=== PATIENT | female | born 1970 | race Caucasian/White ===

== ENCOUNTER 2016-08-11 11:30 | Emergency (ER) | payer OTHER ==
[~2016-08-11] VITALS: Ht 165.1 cm; Wt 52.0 kg
[~2016-08-11 11:30] MED LIST: ALPR1 PO; AMOX500T PO; BENT20TA PO; BIAX500T PO; CARA1SUS3 PO; OMEP20TA39 PO
[2016-08-11] MEDS ORDERED: MOBI7.5T PO (11:45)
[2016-08-11] MEDS ORDERED: PLAQ200T PO (11:45)
[2016-08-11] MEDS ORDERED: DULO1CAP2 PO (11:45)
[2016-08-11] MEDS ORDERED: GLUC15009 PO (11:45)
[2016-08-11] MEDS ORDERED: NAPR250T PO (11:45)
[2016-08-11 11:46] VITALS: PULSE 75; RESP 18; O2SAT 100
[2016-08-11] MEDS ORDERED: SODIUM CHLOR 0.9% 1000 ML INJ 1,000 ML IV SCH (11:49)
[2016-08-11 11:56] VITALS: O2SAT 100
[2016-08-11] MEDS ORDERED: SODIUM CHLORIDE 0.9% FLUSH 5 ML FLUSH IVF PRN (12:00)
[2016-08-11] MEDS ORDERED: ALPRAZolam 1 MG TAB PO ONE (12:00)
[2016-08-11] MEDS ORDERED: ONDANSETRON HCL 4 MG/2 ML VIAL IVP ONE (12:00)
[2016-08-11] MEDS ORDERED: DIATRIZOATE MEGLUM/DIATRIZOATE SOD 9 ML CUP ONE ×2 (12:07)
[2016-08-11] MEDS ORDERED: ALPR1TAB3 PO (12:08)
[2016-08-11 12:30] LABS: AUTOMATED NEUTROPHIL # 3.4 TH/MM3 (1.8-7.7); BASOPHIL # 0.1 TH/MM3 (0-0.2); BASOPHIL % 0.9 % (0.0-2.0); EOSINOPHIL # 0.3 TH/MM3 (0-0.4); EOSINOPHIL % 5.1 % (0.0-4.0); HEMATOCRIT 38.8 % (35.0-46.0); HEMO FLAGS DIFF FINAL; LYMPH % 36.1 % (9.0-44.0); LYMPHOCYTE # 2.5 TH/MM3 (1.0-4.8); MEAN CELL VOLUME 93.2 FL (80.0-100.0); MEAN CORPUSCULAR HGB CONC 35.5 % (32.0-36.0); MONO % 9.2 % (0.0-8.0); NEUT % 48.7 % (16.0-70.0); PLATELET COUNT 298 TH/MM3 (150-450); RED BLOOD COUNT 4.17 MIL/MM3 (4.00-5.30); RED CELL DISTRIBUTION WIDTH 13.4 % (11.6-17.2); WHITE BLOOD COUNT 6.9 TH/MM3 (4.0-11.0)
--- NOTE | 2016-08-11 12:46 | PD ---
HPI Chief Complaint: Abdominal Pain Time Seen by Provider: 11:49 Travel History International Travel<30 days: No Contact w/Intl Traveler<30days: No Traveled to known affect area: No History of Present Illness HPI 46-year-old female came to the emergency room with history of abdominal pain, watery stool, generalized body pain and weakness, anxiety. Her daughter brought her in. Patient was shaking and stammering and the daughter said she becomes like that when she has her panic attack. As per the daughter this gets better when she takes her Xanax but because she has been vomiting too she was unable to hold her Xanax down. She has had these symptoms in the past. She has been diagnosed with rheumatoid arthritis. Daughter says that her symptoms worsened over the past couple days. Due to her severe pain she started taking street drugs including Lortab and cocaine. Patient also drank alcohol. Vital signs were stable otherwise. She has been seen in the emergency room in the past for these symptoms. Her daughter said that patient has appointment with her GI specialist tomorrow but because of the pain she didn't want to wait any longer. [facility] Past Medical History Narrative Medical List of her past medical, surgical, social and family history are reviewed from the nursing note. Anemia: Yes Autoimmune Disease: Yes (RA) Anxiety: Yes Depression: Yes Diminished Hearing: No Gout: Yes Headaches: Yes Triglycerides - High: Yes Ulcer: Yes Tetanus Vaccination: Unknown Influenza Vaccination: No ?: Not LMP: 3-10-17 abnormal heavy bleeding : 4 Para: 3 : 1 Past Surgical History Other Surgery: Yes (breast augmentx2) Social History Alcohol Use: Yes Tobacco Use: Yes Substance Use: Yes (this weekend) Allergies-Medications (Allergen,Severity, Reaction): Coded Allergies: No Known Allergies (Verified , 07/28/13) Comments No known drug allergies. Reported Meds & Prescriptions Reported Meds & Active Scripts Active Macrobid (Nitrofurantoin Monoh/Nitrofur Macro) 100 Mg Cap 100 Mg PO BID 7 Days Reported Alprazolam 1 Mg Tab 1 Mg PO HS Naproxen 250 Mg Tab 250 Mg PO BID Duloxetine DR (Duloxetine HCl) 30 Mg Capdr 30 Mg PO DAILY Mobic (Meloxicam) 7.5 Mg Tab 7.5 Mg PO BID Plaquenil (Hydroxychloroquine Sulfate) 200 Mg Tab 400 Mg PO DAILY Take with food Glucosamine 1,500 Mg Tab 1,500 Mg PO DAILY Narrative Medication List of her home medications reviewed from the nursing note. Review of Systems Except as stated in HPI: all other systems reviewed are Neg Physical Exam Narrative GENERAL: Awake, alert, tremulous and stammering, anxious, moderate to significant distress. SKIN: Warm and dry. HEAD: Atraumatic. Normocephalic. EYES: Pupils equal and round. No scleral icterus. No injection or drainage. ENT: No nasal bleeding or discharge. Mucous membranes pink and moist. NECK: Trachea midline. No JVD. CARDIOVASCULAR: Regular rate and rhythm. No murmur appreciated. RESPIRATORY: No accessory muscle use. Clear to auscultation. Breath sounds equal bilaterally. GASTROINTESTINAL: Abdomen soft, non-tender, nondistended. Hepatic and splenic margins not palpable. MUSCULOSKELETAL: No obvious deformities. No clubbing. No cyanosis. No edema. NEUROLOGICAL: Awake and alert. No obvious cranial nerve deficits. Motor grossly within normal limits. Normal speech. Coarse tremors and stammering. They tend to stop when patient is concentrating and trying to answer questions. PSYCHIATRIC: Appropriate mood and affect; insight and judgment normal. Data Data Last Documented VS Vital Signs Date Time Temp Pulse Resp B/P Pulse Ox O2 Delivery O2 Flow Rate FiO2 08/11/16 15:44 78 16 124/76 98 Room Air Orders Complete Blood Count With Diff (08/11/16 11:49) Comprehensive Metabolic Panel (08/11/16 11:49) Lipase (08/11/16 11:49) Urinalysis - C+S If Indicated (08/11/16 11:49) Ct Abd/Pel W Iv Contrast(Rout) (08/11/16 11:49) Iv Access Insert/Monitor (08/11/16 11:49) Ecg Monitoring (08/11/16 11:49) Oximetry (08/11/16 11:49) Ondansetron Inj (Zofran Inj) (08/11/16 12:00) Sodium Chlor 0.9% 1000 Ml Inj (Ns 1000 M (08/11/16 11:49) Sodium Chloride 0.9% Flush (Ns Flush) (08/11/16 12:00) Alprazolam (Xanax) (08/11/16 12:00) Oral Contrast - Adult (08/11/16 11:58) Diatrizoate Liq ([place] Liq) (08/11/16 12:07) Diatrizoate Liq ([place] Liq) (08/11/16 12:07) Iohexol 350 Inj (Omnipaque 350 Inj) (08/11/16 14:17) Urine Culture (08/11/16 14:05) Nitrofurantoin Monohyd Macrocr (Macrobid (08/11/16 15:00) Labs Laboratory Tests Test 08/11/16 08/11/16 12:10 14:05 Sodium Level 137 MEQ/L Potassium Level 4.1 MEQ/L Chloride Level 103 MEQ/L Carbon Dioxide Level 25.6 MEQ/L Anion Gap 8 MEQ/L Blood Urea Nitrogen 9 MG/DL Creatinine 0.79 MG/DL Estimat Glomerular Filtration 78 ML/MIN Rate Random Glucose 99 MG/DL Calcium Level 8.8 MG/DL Total Bilirubin 0.4 MG/DL Aspartate Amino Transf 24 U/L (AST/SGOT) Alanine Aminotransferase 20 U/L (ALT/SGPT) Alkaline Phosphatase 50 U/L Total Protein 7.3 GM/DL Albumin 4.1 GM/DL Lipase 83 U/L White Blood Count 6.9 TH/MM3 Red Blood Count 4.17 MIL/MM3 Hemoglobin 13.8 GM/DL Hematocrit 38.8 % Mean Corpuscular Volume 93.2 FL Mean Corpuscular Hemoglobin 33.0 PG Mean Corpuscular Hemoglobin 35.5 % Concent Red Cell Distribution Width 13.4 % Platelet Count 298 TH/MM3 Mean Platelet Volume 8.8 FL Neutrophils (%) (Auto) 48.7 % Lymphocytes (%) (Auto) 36.1 % Monocytes (%) (Auto) 9.2 % Eosinophils (%) (Auto) 5.1 % Basophils (%) (Auto) 0.9 % Neutrophils # (Auto) 3.4 TH/MM3 Lymphocytes # (Auto) 2.5 TH/MM3 Monocytes # (Auto) 0.6 TH/MM3 Eosinophils # (Auto) 0.3 TH/MM3 Basophils # (Auto) 0.1 TH/MM3 CBC Comment DIFF FINAL Differential Comment Urine Color YELLOW Urine Turbidity HAZY Urine pH 7.0 Urine Specific [place] 1.018 Urine Protein 30 mg/dL Urine Glucose (UA) NEG mg/dL Urine Ketones 10 mg/dL Urine Occult Blood TRACE Urine Nitrite POS Urine Bilirubin NEG Urine Urobilinogen LESS THAN 2.0 MG/DL Urine Leukocyte Esterase SMALL Urine RBC 1 /hpf Urine WBC 11 /hpf Urine Squamous Epithelial 2 /hpf Cells Urine Bacteria OCC /hpf Urine Mucus FEW /lpf Microscopic Urinalysis Comment CULTURE INDICATED MDM Medical Decision Making Medical Screen Exam Complete: Yes Emergency Medical Condition: Yes Medical Record Reviewed: Yes Differential Diagnosis Acute gastritis, alcoholic gastritis, acute pancreatitis, C. difficile colitis, small bowel obstruction Narrative Course 1:38 PM the test results are back and they're all within acceptable limits. Awaiting for the CAT scan to be done and resulted. Patient just walked to the bathroom and looks much better. She will give a urine specimen. He was given IV fluid 1 L bolus, IV Zofran and 1 mg of Xanax by mouth. 2:48 PM CAT scan of her abdomen and pelvis with by mouth and IV contrast was essentially negative. There was mild free fluid in the pelvis. She does have a UTI and I have ordered a pill Macrobid. Patient will be discharged home at this point with prescription. Procedures EKG Prior to Arrival: No Diagnosis Primary Impression: Abdominal pain Qualified Code: R10.84 - Generalized abdominal pain Additional Impressions: UTI (urinary tract infection) Qualified Code: N39.0 - Urinary tract infection without hematuria, site unspecified acute on chronic abdominal pain Referrals: Primary Care Physician Additional Instructions: Please return to the ER if the condition worsens or any other new concerns. Otherwise follow-up with your primary care in couple days. Take the medication as per the prescription direction. Med/Other Pt SpecificInfo: Prescription(s) given Scripts Nitrofurantoin Monohydrate Macrocrystals (Macrobid)100 Mg [id number] Mg PO BID 7 Days Ref 0 Prov:Avery South MD 08/11/16 Disposition: 01 DISCHARGE HOME Condition: Stable Avery South MD Aug 11, 2016 12:45 Avery South MD Aug 11, 2016 12:45
[2016-08-11 12:47] LABS: ALKALINE PHOSPHATASE 50 U/L (45-117); TOTAL BILIRUBIN ADULT 0.4 MG/DL (0.2-1.0)
[2016-08-11 12:48] LABS: ALT (GPT) 20 U/L (10-53); ANION GAP 8 MEQ/L (5-15); AST (GOT) 24 U/L (15-37); BICARBONATE 25.6 MEQ/L (21.0-32.0); BLOOD UREA NITROGEN 9 MG/DL (7-18); CHLORIDE 103 MEQ/L (98-107); GLOMERULAR FILTRATION RATE 78 ML/MIN (>89); SODIUM (NA) 137 MEQ/L (136-145)
[2016-08-11 12:49] LABS: POTASSIUM 4.1 MEQ/L (3.5-5.1)
[2016-08-11] MEDS ORDERED: IOHEXOL 350 MG/ML 10 ML VIAL (for RAD DIAG) IV ONE (14:17)
[2016-08-11 14:20] LABS: BACTERIA, URINE OCC /hpf; BLOOD, URINE TRACE (NEG); COMMENT (UR) CULTURE INDICATED; CULTURE IF INDICATED CULTURE INDICATED; GLUCOSE,URINE NEG (NEG); KETONE, URINE 10 mg/dL (NEG); MUCUS URINE FEW /lpf (OCC); SQUAMOUS EPITHELIAL CELL URINE 2 /hpf (0-5); URINE COLOR YELLOW (YELLW/STRAW)
[2016-08-11 14:22] LABS: NITRITE,URINE POS (NEG)
--- NOTE | 2016-08-11 14:40 | RADRPT ---
EXAM DATE/TIME: 08/11/2016 14:13 [place] COMPARISON: No previous studies available for comparison. INDICATIONS : Diffuse abdomen pain. IV CONTRAST: 85 cc Omnipaque 350 (iohexol) IV ORAL CONTRAST: Prescribed oral contrast ingested. RADIATION DOSE: 6.14 CTDIvol (mGy) MEDICAL HISTORY : None SURGICAL HISTORY : None. ENCOUNTER: Initial ACUITY: 1 yr PAIN SCALE: 5/10 LOCATION: Bilateral abdomen. TECHNIQUE: Volumetric scanning of the abdomen and pelvis was performed. Using automated exposure control and ad justment of the mA and/or kV according to patient size, radiation dose was kept as low as reasonably achievable to obtain optimal diagnostic quality images. FINDINGS: LOWER LUNGS: The visualized lower lungs are clear. LIVER: There is decreased density in the liver without lesion. There is no dilation of the biliary tree. N o calcified gallstones. SPLEEN: Normal size without lesion. PANCREAS: Within normal limits. KIDNEYS: Normal in size and shape. There is no mass, stone or hydronephrosis. ADRENAL GLANDS: Within normal limits. VASCULAR: There is no aortic aneurysm. BOWEL/MESENTERY: The stomach, small bowel, and colon demonstrate no acute abnormality. There is no free intraperitone al air or fluid. ABDOMINAL WALL: Within normal limits. RETROPERITONEUM: There is no lymphadenopathy. BLADDER: No wall thickening or mass. REPRODUCTIVE: The uterus is retroverted. There is a small amount free fluid seen. INGUINAL: There is no lymphadenopathy or hernia. MUSCULOSKELETAL: Within normal limits for patient age. CONCLUSION: 1. Minimal free fluid in the pelvis 2. Infiltration of the liver. Sukhi Pettit MD on August 11, 2016 at 14:36 Board Certified Radiologist. This report was verified electronically.
[2016-08-11] MEDS ORDERED: MACR100C2 PO (14:50)
[2016-08-11] MEDS ORDERED: NITROFURANTOIN MONOHYD MACROCR 100 MG CAP PO ONE (15:00)
[2016-08-11 15:44] VITALS: BP 124/76; PULSE 78; RESP 16; O2SAT 98
== END 2016-08-11 15:45 | disposition home or self-care (01) ==
LOC: NEPA 11:30
DX: R10.84 Generalized abdominal pain (principal); N39.0 Urinary tract infection, site not specified; B96.1 Klebsiella pneumoniae [K. pneumoniae] as the cause of diseases classified elsewhere; G89.29 Other chronic pain; M79.1 Myalgia; R53.1 Weakness; F41.9 Anxiety disorder, unspecified; R11.2 Nausea with vomiting, unspecified; E78.1 Pure hyperglyceridemia; Z72.0 Tobacco use; Z86.2 Personal history of diseases of the blood and blood-forming organs and certain disorders involving the immune mechanism; Z87.39 Personal history of other diseases of the musculoskeletal system and connective tissue; Z87.19 Personal history of other diseases of the digestive system; Z86.59 Personal history of other mental and behavioral disorders
CPT/HCPCS: 74177; 80053; 81001; 83690; 85025; 87077; 87086; 87186; 96361; 96374; 99284; J2405; J7030; Q9963; Q9967

== ENCOUNTER 2017-02-25 20:59 | Emergency (ER) | payer OTHER ==
[~2017-02-25 20:59] MED LIST changes: -ALPR1 PO; +ALPR1TAB3 PO; -AMOX500T PO; -BENT20TA PO; -BIAX500T PO; -CARA1SUS3 PO; +DULO1CAP2 PO; +GLUC15009 PO; +MACR100C2 PO; +MOBI7.5T PO; +NAPR250T PO; -OMEP20TA39 PO; +PLAQ200T PO
[2017-02-25 21:01] VITALS: BP 162/81; PULSE 78; RESP 16; TEMP 99.2; O2SAT 100
[2017-03-18] MEDS ORDERED: DICY10CA12 PO (10:05)
[2017-03-18] MEDS ORDERED: CYAN100025 SL (10:05)
[2017-03-18] MEDS ORDERED: VOLT1GEL4 (10:05)
[2017-03-18] MEDS ORDERED: DULO1CAP3 PO (10:05)
[2017-03-18] MEDS ORDERED: HYDR-3583 PO (10:05)
[2017-03-18] MEDS ORDERED: OMEP40CA2 PO (10:05)
== END 2017-02-25 22:22 | disposition left against medical advice (07) ==
LOC: NED 20:59
DX: R11.0 Nausea (principal); Z53.21 Procedure and treatment not carried out due to patient leaving prior to being seen by health care provider
CPT/HCPCS: 99281

== ENCOUNTER → 2017-06-18 | Day surgery (SDC) | payer BC ==
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
[~2017-06-18] VITALS: Ht 167.6 cm; Wt 55.7 kg
[~2017-06-18] MED LIST changes: +CHLORHEXIDINE GLUCONATE 2 % 1 PACK (2 CLOTHS) TOPICAL PRN; +CYAN100025 SL; +CYMB60CA PO; +DEXAMETHASONE SOD PHOS 4 MG/ML VIAL IV ONE; +DICY10CA12 PO; +DO NOT ADM ANY ANTICOAGULANT DRUGS PRN; -DULO1CAP2 PO; +ESMOLOL HCL 100 MG/10 ML VIAL IV ONE; +FLUT1INH INH; -GLUC15009 PO; +GLYCOPYRROLATE 1 MG/5 ML SYRINGE IV PUSH ONE; +KETOROLAC TROMETHAMINE 30 MG/ML (IVP) VIAL IV PUSH ONE; +KETOROLAC TROMETHAMINE 30 MG/ML (IVP) VIAL IV PUSH PRN; +KETOROLAC TROMETHAMINE 60 MG/2 ML (IM) VIAL IM PRN; +LACTATED RINGER'S 1000 ML IV PRN; +LIDOCAINE 0.5%/EPINEPHrine 1:200,000 SOLN 50 ML VIAL ONE; +LIDOCAINE HCL 1% PF 5 ML SYRINGE OTHER ONE; -MACR100C2 PO; +METOPROLOL TARTRATE 25 MG TAB PO PRN; +MIDAZOLAM HCL 2 MG/2 ML VIAL ONE; -MOBI7.5T PO; -NAPR250T PO; +NEOSTIGMINE 5 MG/5 ML SYRINGE IV PUSH ONE; +ONDANSETRON HCL 4 MG/2 ML VIAL IV ONE; +ONDANSETRON HCL 4 MG/2 ML VIAL IV PUSH PRN; +PANT20TA2 PO; +POVIDONE IODINE 5% (ANTISEPSIS KIT) 4 APPLICATIONS EACH NARE PRN; +PROPOFOL 200 MG/20 ML AMP IV ONE; +ROCURONIUM INJ 50 MG/5 ML SYRINGE IV PUSH ONE; +SODIUM CHLORID 0.9% 500 ML IV PRN; +VOLT1GEL16 TOPICAL; +ceFAZolin 2 GM PREMIX 50 ML IV SCH; +traMADol HCL 50 MG TAB PO PRN
[2017-06-18 09:40] VITALS: TEMP 97.4
--- NOTE | 2017-06-18 09:45 | MP ---
cc: NATIVIDAD MORSE MD, JESSE S. MD DATE OF SURGERY 06/18/2017 PREOPERATIVE DIAGNOSIS Rectocele. POSTOPERATIVE DIAGNOSIS Rectocele, enterocele, uterovaginal prolapse. PROCEDURE 1. Rectocele repair with enterocele repair. 2. Extraperitoneal hysteropexy. SURGEON Dr. Morse. ANESTHESIA General endotracheal. ESTIMATED BLOOD LOSS 25 cc. 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 URINE OUTPUT 200 cc. FLUIDS 1000 cc crystalloid. FINDINGS External genitalia normal. POP-Q score: Aa is -1; Ap is +1; point-C is -4; total vaginal length is 10; genital hiatus is 6; perineal body is 4. Rectal exam was normal. Following repair Aa is -2; Ap is -3; point-C is -8; total vaginal length is 10; genital hiatus is 6; perineal body is 5. Rectal exam was normal. Bimanual exam revealed anteverted, anteflexed uterus, no adnexal mass. SPECIMEN Vaginal mucosa trimmed but not sent. COMPLICATIONS None. DISPOSITION To recovery room stable. COUNTS Needle and sponge counts correct. DRAINS Gamez catheter. PROPHYLAXIS Antibiotic prophylaxis: Ancef 2 grams. DVT prophylaxis: Sequential compression device. Timeout procedure per protocol. SUMMARY OF INDICATION FOR PROCEDURE Patient with symptomatic pelvic organ prolapse, posterior compartment predominant. The patient had an issue with a flu-like illness approximately two weeks prior to surgery. She had a chronic cough but had received Tamiflu and was cleared for procedure after discussion with Anesthesia. DETAILS OF PROCEDURE The patient was taken to the operating theatre, identified, prepped and draped in a fashion for planned procedure. She was in the dorsal supine position with careful attention paid to placement of legs in the stirrups to avoid undue stress to sensitive neurovascular structures. Above findings noted. Neurovascular integrity documented. A Gamez catheter was placed. A pudendal block was performed with epinephrine and lidocaine solution. The vaginal mucosa was infiltrated with epinephrine and lidocaine solution. A midline incision was made from the fourchette to the posterior fornix. Rectovaginal tissues were reflected. There was one finger in the rectum to make sure we had traction and countertraction and did not injure the rectum. An enterocele was encountered, closed with delayed absorbable suture. Posterior repair was performed in the standard fashion with delayed absorbable suture and plication technique. The vaginal mucosa was trimmed. A hysteropexy was performed, extraperitoneal approach with coccygeus muscles. The vaginal mucosa was closed with a running Vicryl suture. Hemostatic matrix was used for hemostasis to obviate the need for packing. A perineoplasty was performed in the standard fashion. Above findings noted. Rectal exam normal following repair. POP-Q score postoperatively noted with Ap -3 and point-C -8. The patient tolerated the procedure well and went to the recovery room in stable condition. Natividad Morse MD CS/BT /9:19 AM /9:24 AM
[2017-06-18 10:20] VITALS: BP 120/60; PULSE 66; RESP 18; O2SAT 99
== END | disposition home or self-care (01) ==
LOC: HSDC 05:56
PROVIDERS: ATTEND Obstetrics & Gynecology Gynecology
DX: N81.9 Female genital prolapse, unspecified (principal); K59.09 Other constipation; M62.838 Other muscle spasm; M06.9 Rheumatoid arthritis, unspecified; F41.9 Anxiety disorder, unspecified; F17.210 Nicotine dependence, cigarettes, uncomplicated; N81.4 Uterovaginal prolapse, unspecified
CPT/HCPCS: 00942; 57250; J0690; J1100; J1885; J2250; J2405; J2710; J3010; J7120